=== PATIENT | female | born 1960 | race Caucasian/White ===

== ENCOUNTER 2018-07-14 09:22 | Emergency (ER) | payer MEDICAID ==
[2018-07-14] MEDS ORDERED: Piperacillin/Tazobactam 3.375 GM in Sodium Chloride 0.9% 100 ML IV ONE (10:09)
[2018-07-14] MEDS ORDERED: Dexamethasone 4 MG/ML SDV IVPUSH ONE (10:10)
[2018-07-14] MEDS: Sodium Chloride 0.9% 10 ML Syringe FLUSH PRN ×2 (10:27→10:32)
[2018-07-14 10:57] LABS: ANION GAP 17.9; CHLORIDE,CL 95 mmol/L (101-111); SODIUM,NA 133 mmol/L (135-145)
--- NOTE | 2018-07-14 11:21 | EDM.PDOC ---
Scribed by Stacy Bedoya 07/14/18 1019 for Burke Montelongo MD ED HPI GENERAL MEDICAL PROBLEM - General Chief Complaint: General Stated Complaint: FACE IS SWOLLEN [id number] Time Seen by Provider: 07/14/18 09:40 Source of Information: Reports: Patient, RN, RN Notes Reviewed History Limitations: Reports: No Limitations - History of Present Illness INITIAL COMMENTS - FREE TEXT/NARRATIVE: Patient presents to ER from home by POV with complaint of 2 days duration of left facial swelling, which is getting worse. She believes it is coming from infection of her left upper gums. Denies fevers, chills or neck pain. 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 [Unable to Verify Home Med List] 07/14/18 [History] Past Medical History Cardiovascular History: Reports: Heart Valve Replacement - History Comment History Comment: Pt is unsure of her PMHx and of her medications. Social & Family History - Family History Family Medical History: Noncontributory - Living Situation & Occupation Living situation: Reports: with Family ED ROS GENERAL - Review of Systems Review Of Systems: ROS reveals no pertinent complaints other than HPI. ED EXAM, GENERAL - Physical Exam Exam: See Below Exam Limited By: No Limitations General Appearance: Alert, WD/WN, No Apparent Distress Eye Exam: Right Eye: Normal Inspection, Left Eye: Periorbital Changes (swelling/ edema), Bilateral Eye: EOMI, PERRL Ears: Normal External Exam, Normal Canal, Hearing Grossly Normal, Normal TMs Nose: Normal Inspection, Normal Mucosa, No Blood Throat/Mouth: Normal Lips, Normal Oropharynx, Normal Voice, No Airway Compromise , Other (upper gums inflammed with moderate erythema at the left molar region). No: Normal Teeth (upper dentures) Head: Normocephalic, Facial Swelling (left, to periorbital face), Facial Tenderness Neck: Normal Inspection, Supple, Non-Tender, Full Range of Motion, Other (no nuchal rigidity). No: Lymphadenopathy (L), Lymphadenopathy (R) Respiratory/Chest: No Respiratory Distress, Lungs Clear, Normal Breath Sounds, No Accessory Muscle Use, Chest Non-Tender Cardiovascular: Regular Rate, Rhythm Neurological: Alert, Oriented, CN II-XII Intact, Normal Cognition, Normal Gait, No Motor/Sensory Deficits Psychiatric: Normal Mood Skin Exam: Warm, Dry, Intact, Erythema (left face, mild) Course - Vital Signs Last Recorded V/S: Last Vital Signs Temp 36.0 C 07/14/18 09:39 Pulse 90 07/14/18 09:39 Resp 18 07/14/18 09:39 BP 130/70 07/14/18 09:50 Pulse Ox 97 07/14/18 09:39 - Orders/Labs/Meds Orders: Active Orders 24 hr Category Date Time Status Peripheral IV Care [RC] . DIRECTED Care 07/14/18 10:06 Active CULTURE BLOOD [BC] Stat Lab 07/14/18 10:27 Received Sodium Chloride 0.9% [Saline Flush] Med 07/14/18 10:06 Active 10 ml FLUSH ASDIRECTED PRN Peripheral IV Insertion Adult [OM.PC] Stat Oth 07/14/18 10:06 Ordered Medication Orders Sodium Chloride (Saline Flush) 10 ml FLUSH ASDIRECTED PRN PRN Reason: Keep Vein Open Last Admin: 07/14/18 10:32 Dose: 10 ml Admin: 07/14/18 10:27 Dose: 10 ml Labs: Laboratory Tests 07/14/18 07/14/18 07/14/18 Range/Units 10:27 10:27 10:27 WBC 7.9 (5.0-10.0) 10^3/uL RBC 4.80 (4.2-5.4) 10^6/uL Hgb 14.3 (12.0-16.0) g/dL Hct 42.5 (37.0-47.0) % MCV 88.5 (80-100) fL MCH 29.8 (27.0-34.0) pg MCHC 33.6 (33.0-35.0) g/dL Plt Count 192 (150-450) 10^3/uL Neut % (Auto) 74.7 (42.2-75.2) % Lymph % (Auto) 15.4 L (20.5-50.1) % [place] % (Auto) 6.2 (2-8) % Eos % (Auto) 3.2 H (1.0-3.0) % Baso % (Auto) 0.5 (0.0-1.0) % Sodium 133 L (135-145) mmol/L Potassium 3.9 (3.6-5.0) mmol/L Chloride 95 L (101-111) mmol/L Carbon Dioxide 24.0 (21.0-31.0) mmol/L Anion Gap 17.9 BUN 12 (7-18) mg/dL Creatinine 0.7 (0.6-1.3) mg/dL Est Cr Clr Drug Dosing 63.69 mL/min Estimated GFR (MDRD) > 60 BUN/Creatinine Ratio 17.14 Glucose 102 (74-105) mg/dL Calcium 8.8 (8.4-10.2) mg/dl Total Bilirubin 0.8 (0.2-1.0) mg/dL AST 51 H (10-42) IU/L ALT 59 (10-60) IU/L Alkaline Phosphatase 94 (42-121) IU/L C-Reactive Protein 3.8 H (0.0-1.3) mg/dL Total Protein 8.4 H (6.7-8.2) g/dl Albumin 4.3 (3.2-5.5) g/dl Globulin 4.1 Albumin/Globulin Ratio 1.05 Meds: Medications Generic Name Dose Route Start Last Admin Trade Name Freq PRN Reason Stop Dose Admin Sodium Chloride 10 ml 07/14/18 10:07/14/18 10:32 Saline Flush FLUSH 10 ml ASDIRECTED PRN Administration Keep Vein Open Discontinued Medications Generic Name Dose Route Start Last Admin Trade Name Freq PRN Reason Stop Dose Admin Dexamethasone 10 mg 07/14/18 10:10 07/14/18 10:28 Dexamethasone IVPUSH 07/14/18 10:11 10 mg ONETIME ONE Administration Piperacillin Sod/Tazobactam 100 mls @ 200 mls/hr 07/14/18 10:09 07/14/18 10: 32 Sod 3.375 gm/ Sodium Chloride IV 07/14/18 10:38 200 mls/hr ONETIME ONE Administration Departure - Departure Time of Disposition: 11:18 Disposition: Home, Self-Care 01 Condition: Fair Clinical Impression: Facial cellulitis, Gingival abscess - Discharge Information *PRESCRIPTION DRUG MONITORING PROGRAM REVIEWED*: Not Applicable *COPY OF PRESCRIPTION DRUG MONITORING REPORT IN PATIENT REHANA: Not Applicable Instructions: Cellulitis, Adult, [id number] Forms: ED Department Discharge Additional Instructions: Rx: Clindamycin 300mg Rx: Decadron 4mg Do not were dentures until pain and swelling resolve. Follow up in clinic with your doctor for recheck in 2 to 3 days. - My Orders Last 24 Hours: My Active Orders 07/14/18 10:06 Peripheral IV Care [RC] . DIRECTED Sodium Chloride 0.9% [Saline Flush] 10 ml FLUSH ASDIRECTED PRN Peripheral IV Insertion Adult [OM.PC] Stat 07/14/18 10:27 CULTURE BLOOD [BC] Stat - Assessment/Plan Last 24 Hours: My Active Orders 07/14/18 10:06 Peripheral IV Care [RC] . DIRECTED Sodium Chloride 0.9% [Saline Flush] 10 ml FLUSH ASDIRECTED PRN Peripheral IV Insertion Adult [OM.PC] Stat 07/14/18 10:27 CULTURE BLOOD [BC] Stat I have read and agree with the documentation that has been completed regarding this visit. By signing this record, I attest that the documentation was completed in my physical presence and is an accurate record of the encounter.
== END 2018-07-14 11:30 | disposition home or self-care (01) ==
LOC: DL.ED 09:22
DX: L03.211 Cellulitis of face (principal); K05.219 Aggressive periodontitis, localized, unspecified severity
CPT/HCPCS: 36415; 80053; 85025; 86140; 87040; 96365; 96375; 99283; J1100; J2543; J7050